=== PATIENT | female | born 1995 | race Caucasian/White ===

== ENCOUNTER 2018-09-16 15:58 | Emergency (ER) | payer OTHER ==
[~2018-09-16] VITALS: Ht 162.6 cm; Wt 46.3 kg
[2018-09-16] MEDS ORDERED: ADDERALL 15 MG15 MG (16:11)
== END 2018-09-16 23:49 | disposition home or self-care (01) ==
LOC: ER 15:58
DX: K59.09 Other constipation (principal); R10.32 Left lower quadrant pain